=== PATIENT | female | born 1945 | race Caucasian/White ===

== ENCOUNTER 2016-09-10 13:44 | Day surgery (SDC) | payer MEDICARE, OTHER ==
[2016-09-10] MEDS ORDERED: PROPOFOL 10 MG/ML VIAL IV ONE (14:00)
[2016-09-10] MEDS ORDERED: LIDOCAINE 2% MDV (20MG/ML) 20ML VIAL IV ONE (14:00)
[2016-09-10] MEDS ORDERED: FENTANYL PF 100MCG/2ML VIAL IV ONE (14:00)
[2016-09-10] MEDS ORDERED: MIDAZOLAM HCL 2MG/2ML VIAL IV ONE (14:00)
--- NOTE | 2016-09-14 10:51 | Operative Note ---
DATE OF SURGERY: 09/10/2016 OPERATION: COLONOSCOPY with photo. PREOPERATIVE DIAGNOSIS: History of numerous colon polyps and adenomas. POSTOPERATIVE DIAGNOSIS: Normal exam. PROCEDURE: After informed consent was obtained from the patient, she was placed in the left lateral decubitus position in the endoscopy suite. She was sedated and monitored by the department of anesthesia. Digital rectal examination was unremarkable. A well-lubricated [id number] colonoscope was inserted into the rectum and advanced to the cecum. Preparation quality was good. The cecum, ascending colon, transverse colon, descending colon, sigmoid colon, and rectum were carefully inspected. No polyps, mass lesions, or inflammation was seen. Forward and J-turn views of the rectum and anorectum were unremarkable. The endoscope was straightened, the rectal ampulla deflated, and the endoscope was removed. RECOMMENDATIONS: I would suggest the patient resume her medications and diet. I would recommend a repeat exam in 5 years. As always, thank you for allowing me to participate in the healthcare of your patients. Jose Duffy DO CC: Dr. Jhon PEARCE
== END 2016-09-10 15:32 | disposition home or self-care (01) ==
LOC: HOP 13:44
PROVIDERS: ATTEND Internal Medicine Gastroenterology
DX: Z09 Encounter for follow-up examination after completed treatment for conditions other than malignant neoplasm (principal); Z86.010 Personal history of colon polyps; I10 Essential (primary) hypertension
CPT/HCPCS: 00810; G0105